=== PATIENT | female | born 1950 | race Caucasian/White ===

== ENCOUNTER 2017-04-08 13:47 | Emergency (ER) | payer MEDICARE, BC ==
[2017-04-08] MEDS ORDERED: ONDANSETRON HCL IV 4 MG/2 ML VIAL IVP ONE (14:14)
[2017-04-08] MEDS ORDERED: MECLIZINE 25 MG TABLET PO ONE (14:14)
--- NOTE | 2017-04-08 14:23 | Emergency Department Record ---
History of Present Illness - General Chief Complaint: Dizziness Stated Complaint: DIZZY Time Seen by Provider: 04/08/17 14:09 Source: Patient Mode of Arrival: Ambulatory Limitations: No limitations - History of Present Illness Initial Comments: The patient is here due to a 4 day hx of dizziness. She describes the sensation as feeling like the room is spinning and it is much worse with any head movement. The patient has been ill for 4 days with a cough and congestion and nasal stuffiness and now for the last couple of hours the spinning has become much worse. She does have a hx of similar problems with dizziness in the past but this episode is worse. She denies any JAFFE, neck pain, SOB, CP, arm or leg weakness or numbness, visual changes, or trouble swallowing. MD Complaint: Dizziness Onset/Timin -: Days(s) Description: "Room spinning" History of Same: Yes ("Not this bad") History of Trauma: No Severity: Moderate Worsens With: Movement Associated Symptoms: Denies other symptoms - Marilee Coma Scale Eye Response: (4) Open spontaneously Motor Response: (6) Obeys commands Verbal Response: (5) Oriented [place] Total: 15 - Related Data Home Medications Medication Instructions Recorded Confirmed Last Taken D3/Folic Acid/Collagen,Hydroly 1 each PO DAILY 04/08/17 04/08/17 04/08/17 [Cyfolex Capsule] Losartan Potassium [Cozaar] 50 mg PO DAILY 04/08/17 04/08/17 04/08/17 Previous Rx's Medication Instructions Recorded Doxycycline Monohydrate [Mondoxyne 100 mg PO BID #14 capsule 04/08/17 Nl] Meclizine HCl [Antivert] 25 mg PO Q8H #21 tablet 04/08/17 Allergies Allergy/AdvReac Type Severity Reaction Status Date / Time No Known Drug Allergies Allergy Verified 04/08/17 13:53 Travel Screening - Travel/Exposure Within Last 30 Days Have you traveled within the last 30 days?: No - Travel/Exposure Within Last Year Have you traveled outside the [place] in the last year?: No - Additonal Travel Details Have you been exposed to anyone with a communicable illness?: No - Travel Symptoms Symptom Screening: None Review of Systems Constitutional: Reports: Malaise. Denies: Chills, Fever Eyes: Denies: Eye discharge, Eye pain ENT: Reports: Congestion Respiratory: Reports: Cough. Denies: Dyspnea Cardiovascular: Denies: Arrhythmia, Chest pain Endocrine: Reports: Fatigue Past Medical History - SOCIAL HISTORY Smoking Status: Never smoker Alcohol Use: None Drug Use: None - CIRCULATION LIBRARIAN History CIRCULATION LIBRARIAN history: Reports: no CIRCULATION LIBRARIAN history - RESPIRATORY Hx Respiratory Disorders: Yes Hx Sleep Apnea: Yes Hx of CPAP: Yes - CARDIOVASCULAR Hx Cardio Disorders: Yes Hx Cardiac Cath: Yes Hx Hypertension: Yes Hx Irregular Heartbeat: Yes (A FIB) Hx Palpitations: Yes (X2) - NEURO Hx Neuro Disorders: No - GI Hx GI Disorders: No - Hx Genitourinary Disorders: Yes Hx Kidney Stones: Yes - ENDOCRINE Hx Endocrine Disorders: Yes Hx Diabetes: Yes (DM2) Hx Thyroid Disease: No Comment:: Hypopituitarism - MUSCULOSKELETAL Hx Musculoskeletal Disorders: Yes Hx Arthritis: Yes Hx Gout: Yes - PSYCH Hx Psych Problems: No - HEMATOLOGY/ONCOLOGY Hx Hematology/Oncology Disorders: No Family Medical History Any Significant Family History?: Yes Hx Cancer: Grandparents Hx Diabetes: Grandparents Hx Heart Disease: Father Hx HTN: Father Hx Resp Disorders: Grandparents Hx Stroke: Father, Grandparents Physical Exam - General General Appearance: Alert, Oriented x3, Cooperative, No acute distress - Head Head exam: Atraumatic, Normocephalic, Normal inspection - Eye Eye exam: Normal appearance, PERRL, EOMI, Other (There is bilateral horizontal nystagmus.) - ENT ENT exam: Normal exam, Mucous membranes moist, Normal external ear exam, Normal orophraynx, TM's normal bilaterally Throat exam: Normal inspection. negative: Tonsillar erythema, Tonsillar exudate - Neck Neck exam: Normal inspection, Full ROM. negative: Tenderness - Respiratory Respiratory exam: Normal lung sounds bilaterally. negative: Respiratory distress - Cardiovascular Cardiovascular Exam: Regular rate, Normal rhythm, Normal heart sounds - GI/Abdominal GI/Abdominal exam: Soft, Normal bowel sounds. negative: Tenderness - Extremities Extremities exam: Normal inspection, Full ROM, Normal capillary refill. negative: Tenderness - Neurological Neurological exam: Alert, Normal gait, Oriented X3, Reflexes normal, Other (Neg Drift and Rhomberg exams.). negative: Abnormal gait, Altered, Motor sensory deficit - Psychiatric Psychiatric exam: negative: Anxious, Depressed Course Vital Signs 04/08/17 14:02 Temperature 98.6 F Pulse Rate 90 Respiratory 20 Rate Blood Pressure 163/9 Pulse Ox 96 - Reevaluation(s) Reevaluation #1: The patient is doing a lot better at this time. She is feeling MUCH less dizzy and denies any other issues. 04/08/17 15:15 Reevaluation #2: The patient is doing much better at this time. Her dizziness has resolved and she is up walking with a steady gait and no ataxia. I did discuss the lab and xray results with the patient and family. 04/08/17 15:30 Medical Decision Making - Data Complexity MDM Data: Labs Ordered and/or Reviewed, X-Ray Ordered and/or Reviewed, EKG Ordered and/or Reviewed - Lab Data Result diagrams: 04/08/17 14:40 04/08/17 14:40 - EKG Data -: EKG Interpreted by Me EKG: No Acute Changes, Unchanged From Previous - Radiology Data Radiology results: Report reviewed (Head CT: No acute changes. CXR: Neg.) Disposition Disposition: Discharge Clinical Impression: Vertigo Disposition: Home, Self-Care Condition: (2) Stable Instructions: Dizziness (ED) Additional Instructions: Please take the Doxycycline and Antivert as directed. Please return to the ER for any worsening or new symptoms. Please see your PCP next week for recheck. Prescriptions: Doxycycline Monohydrate [Mondoxyne Nl] 100 mg PO BID #14 capsule Meclizine HCl [Antivert] 25 mg PO Q8H #21 tablet Forms: Patient Portal Access Time of Disposition: 15:33 Quality - Quality Measures Quality Measures: N/A - Blood Pressure Screening View Details: Yes Does Patient Have Any of the Following: No Blood Pressure Classification: Hypertensive Reading Systolic Measurement: 158 Diastolic Measurement: 77 Screening for High Blood Pressure: < Pre-Hypertensive BP, F/U Documented > [ [id number]] Pre-Hypertensive Follow-up Interventions: Referral to alternative/primary care provider.
[2017-04-08 14:46] LABS: BASO % 0.3 % (0-6); EOS % 2.1 % (0-6); GRAN % 66.9 % (47-80); HEMATOCRIT 36.8 % (35.0-47.0); LYMPH % 21.9 % (16-45); MEAN CELL VOLUME 90.4 fl (81-97); MEAN CORPUSCULAR HGB CONC 29.9 g/dl (32-36); MEAN PLATELET VOLUME 10.6 fl (7.4-10.4); MONO % 8.8 % (0-9); PLATELET COUNT 205 K/uL (130-400); RED BLOOD COUNT 4.07 M/uL (3.80-5.40); RED CELL DISTRIBUTION WIDTH 14.3 % (11.5-14.5); WHITE BLOOD COUNT W/O DIFF 6.6 K/uL (4.2-12.2)
[2017-04-08 14:57] LABS: INR 0.94; PARTIAL THROMBOPLASTIN TIME 26.8 SECONDS (24.5-39.1); PROTHROMBIN TIME (PATIENT) 10.2 SECONDS (9.5-12.1)
[2017-04-08 15:00] LABS: BLOOD UREA NITROGEN 14 mg/dL (8-23); CREATININE 0.7 mg/dL (0.5-0.9); EST GLOMERULAR FILTRATION RATE > 60 mL/min
[2017-04-08 15:02] LABS: GLUCOSE,RANDOM 150 mg/dL (74-109)
[2017-04-08 15:05] LABS: ALB/GLOB RATIO 1.6 (1.1-1.8); ALBUMIN 4.3 g/dL (4.0-5.0); ALKALINE PHOSPHATASE 78 U/L (35-104); ALT/SGPT 27 U/L (<33); AST/SGOT 34 U/L (10.0-35.0)
[2017-04-08] MEDS ORDERED: DOXYCYCLINE HYCLATE 100 MG CAPSULE PO ONE (15:34)
--- NOTE | 2017-04-09 08:08 | CT SCAN REPORT ---
EXAM: CT OF THE HEAD WITHOUT CONTRAST HISTORY: DIZZINESS AFTER SHOWER TODAY. UPPER RESPIRATORY TRACT INFECTION FOR FOUR DAYS. VERTIGO. TECHNIQUE: Routine noncontrast CT examination of the head was obtained. Comparison: None. FINDINGS: The ventricles and subarachnoid spaces are normal in size. No suspicious area of abnormally increased or decreased attenuation is noted throughout the brain substance. No abnormal extraaxial fluid collection is seen. Hyperostosis frontalis interna. No suspicious focal skull abnormality. The visualized mastoid air cells and middle ear cavities appear clear. There is mild mucosal thickening in the maxillary sinuses, multiple bilateral ethmoid air cells, and inferior aspects of the frontal sinuses. Post surgical changes are noted within the nasal cavity, multiple ethmoid air cells, and the anterior miranda of the sphenoid sinuses. There is minor mucosal thickening within the miranda of the sphenoid sinuses. Post cataract surgery changes are noted bilaterally. The orbits are otherwise unremarkable. IMPRESSION: 1. NO CT EVIDENCE OF ACUTE MAJOR VESSEL INFARCT, INTRACRANIAL HEMORRHAGE, NOR MASS. 2. POST SURGICAL CHANGES SCATTERED THROUGHOUT THE NASAL CAVITY, MULTIPLE ETHMOID AIR CELLS AND THE ANTERIOR MIRANDA OF THE FRONTAL SINUSES. MILD MUCOSAL THICKENING SCATTERED THROUGHOUT THE MAJORITY OF THE PARANASAL SINUSES. 3. POST CATARACT SURGERY CHANGES. JOB NUMBER: [id number] MTDD
--- NOTE | 2017-04-09 08:11 | RADIOLOGY REPORT ---
EXAM: CHEST, TWO VIEWS HISTORY: COUGH AND DIFFICULTY IN BREATHING FOR ONE WEEK. TECHNIQUE: Upright PA and lateral views of the chest were obtained. Comparison: Two view chest radiographic examination dated 09/16/14. Portable chest dated 08/01/15. FINDINGS: The heart is not enlarged and the pulmonary vasculature is nondilated. The lungs and pleural spaces are clear. The thoracic aorta is tortuous and atherosclerotic. There are degenerative changes scattered within the visualized spine associated with mild levoconvex scoliosis of the thoracic spine. There are mild to moderate degenerative changes of the shoulder girdles. IMPRESSION: 1. NO RADIOGRAPHIC EVIDENCE OF ACUTE CARDIOPULMONARY DISEASE. 2. DEGENERATIVE CHANGES OF THE VISUALIZED SPINE AND SHOULDER GIRDLES. JOB NUMBER: [id number] MTDD
== END 2017-04-08 15:45 | disposition home or self-care (01) ==
LOC: ER 13:47
DX: R42 Dizziness and giddiness (principal); R06.00 Dyspnea, unspecified; R05 Cough; I10 Essential (primary) hypertension; I48.91 Unspecified atrial fibrillation; E11.9 Type 2 diabetes mellitus without complications
CPT/HCPCS: 99284 ×2; 96374; 85025; 85730; 85610; 80053; 71020; 70450; 93005; 93010; J2405